=== PATIENT | male | born 1940 | race Caucasian/White ===

== ENCOUNTER 2019-08-09 16:11 | Emergency (ER) | payer BC ==
[2019-08-09] MEDS ORDERED: Ketorolac Tromethamine 30 MG/ML VIAL ONE (17:40)
[2019-08-09] MEDS ORDERED: HYDROcodone/Acetaminophen 5/325 mg Tablet ONE (17:52)
--- NOTE | 2019-08-09 18:34 | RAD ---
XR Femur Lt 2 View STANDARD History: Fall Comparison: None. Findings: Obturator ring is intact. No fracture. No malalignment. Large femoral head/neck ring osteophytes. Mild lateral thigh soft tissue swelling. Impression: No acute displaced fracture of the femur.
--- NOTE | 2019-08-09 18:35 | RAD ---
XR Hip Lt 2-3 View History: Fall Comparison: None. Findings: No acute fracture or malalignment. Obturator ring is intact. Large femoral head/neck ring o steophytes. Mild lateral soft tissue swelling. Impression: No acute displaced fracture.
== END 2019-08-09 18:51 | disposition home or self-care (01) ==
LOC: ERS 16:11
DX: M54.10 Radiculopathy, site unspecified (principal); M79.662 Pain in left lower leg; Z86.73 Personal history of transient ischemic attack (TIA), and cerebral infarction without residual deficits; Z79.82 Long term (current) use of aspirin; Z79.899 Other long term (current) drug therapy; W18.30XA Fall on same level, unspecified, initial encounter
CPT/HCPCS: J1885